=== PATIENT | male | born 1980 | race Caucasian/White ===

== ENCOUNTER 2016-05-15 16:56 | Emergency (ER) | payer SELFPAY ==
[2016-05-15] MEDS ORDERED: KETOROLAC TROMETHAMINE 60 MG/2 ML VIAL ONE (17:17)
[2016-05-15] MEDS: KETOROLAC TROMETHAMINE 60 MG/2 ML VIAL IM ONE (17:20)
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
[2016-05-15] MEDS: CYCLOBENZAPRINE HCL 5 MG TABLET PO ONE (17:48)
--- NOTE | 2016-05-15 18:03 | Diagnostic Imaging Report ---
NYASIA ANDRADE~ [facility] [address] [facility].[address] [address] ~ ~ ~ ~ Report Submission Date: May 15, 2016 5:58:00 PM PUMPER HELPER Patient ~ Study Name: ANT HALEY ~ Date: May 15, 2016 5:36:49 PM PUMPER HELPER ~ Modality Type: CR Gender: M ~ Description: SHOULDER : 80 ~ Institution: [facility] Physician: NYASIA ANDRADE ~ ~ ~ ~ Right shoulder 2 views Clinical history: Severe right shoulder pain No visible fracture, dislocation or bone destruction. Scapula appear to be normal. No soft tissue calcifications or radiopaque foreign bodies . Impression: Normal right shoulder including right scapula ~ Electronically signed on May 15, 2016 5:58:00 PM PUMPER HELPER by: Myron MONTALVO
[2016-05-15] MEDS: traMADol HCL 50 MG TABLET PO ONE (18:48)
[2016-05-15 19:25] VITALS: BP 130/66
--- NOTE | 2016-05-15 21:44 | Diagnostic Imaging Report ---
NYASIA ANDRADE~ [facility] [address] [address] ~ ~ ~ ~ Report Submission Date: May 15, 2016 6:35:09 PM SATELLITE INSTRUCTION FACILITATOR Patient ~ Study Name: ANT HALEY ~ Date: May 15, 2016 6:20:24 PM SATELLITE INSTRUCTION FACILITATOR ~ Modality Type: CR Gender: M ~ Description: CHEST : 80 ~ Institution: [facility] Physician: NYASIA ANDRADE ~ ~ ~ ~ Chest -two views CLINICAL HISTORY: ~ Shoulder and back pain with pain radiating to the right arm. FINDINGS: ~ Examination of the chest in PA and lateral views with no prior film for comparison demonstrates the lungs to be clear. ~Cardiovascular and mediastinal silhouettes are within normal limits. ~The bony thorax is intact. ~Patient's chin superimposes the right apex. IMPRESSION: ~ No active disease. ~ Patient's chin superimposes the right apex. ~ Electronically signed on May 15, 2016 6:35:09 PM SATELLITE INSTRUCTION FACILITATOR by: Jaret MONTALVO
[2016-05-16 05:57] LABS: AMPHETAMINE NEGATIVE ng/mL (<1000); BARBITURATES NEGATIVE ng/mL (<300); CANNABINOIDS NON NEGATIVE ng/mL (<50); COCAINE NEGATIVE ng/mL (<150); METHAMPHETAMINE NEGATIVE ng/mL (<1000); METHYLENEDIOXYMETHAMPHETAMINE NEGATIVE ng/mL (<500)
== END 2016-05-15 18:10 | disposition home or self-care (01) ==
LOC: ED 16:56
DX: M25.511 Pain in right shoulder (principal); Z76.5 Malingerer [conscious simulation]
CPT/HCPCS: 71020; 73010; 80377; J1885; 96372; 99282; 99283; G0481